=== PATIENT | female | born 1985 | race Caucasian/White ===

== ENCOUNTER 2016-11-23 11:07 | Emergency (ER) | payer MEDICAID ==
[~2016-11-23] VITALS: Wt 80.0 kg
[2016-11-23] MEDS ORDERED: ACETAMINOPHEN 325 MG TAB PO STA (12:09)
[2016-11-23 13:04] LABS: ADD SCAN DIFF NO
[2016-11-23 13:09] LABS: BASOPHILS % 0.2 % (0.0-2.0); EOSINOPHILS % 0.4 % (0.0-7.0); HEMATOCRIT 42.2 % (37.0-47.0); HEMOGLOBIN 14.1 g/dl (12.0-16.0); LYMPHOCYTES # 1.7 10^3/ul (0.8-2.9); LYMPHOCYTES % 17.5 % (15.0-51.0); MEAN CORPUSCULAR HGB CONC 33.4 g/dl (32.0-37.0); MEAN CORPUSCULAR VOLUME 89.8 fl (82.0-101.0); MEAN PLATELET VOLUME 10.2 fl (7.4-10.4); MONOCYTE # 0.5 10^3/ul (0.3-0.9); MONOCYTES % 4.7 % (0.0-11.0); NEUTROPHIL # 7.3 10^3/ul (1.6-7.5); PLATELET COUNT 272 10^3/UL (140-415); RED CELL DISTRIBUTION WIDTH 11.9 % (11.5-14.5); WHITE BLOOD COUNT 9.5 10^3/ul (4.8-10.8)
[2016-11-23 13:16] LABS: ADD UMIC YES; URINE BILIRUBIN (Dip) NEGATIVE (NEGATIVE); URINE BLOOD (Dip) 3+ (NEGATIVE); URINE GLUCOSE (Dip) NEGATIVE (NEGATIVE); URINE KETONES (Dip) NEGATIVE (NEGATIVE); URINE LEUKOCYTE ESTERASE (Dip) 1+ (NEGATIVE); URINE NITRITE (Dip) NEGATIVE (NEGATIVE); URINE TOTAL PROTEIN (Dip) NEGATIVE (NEGATIVE); URINE UROBILINOGEN (Dip) 1.0 E.U./dL (0.1-1.0)
[2016-11-23 14:05] LABS: URINE COLOR 9064 (YELLOW)
[2016-11-23 14:06] LABS: BACTERIA,URINE FEW; URINE RBCS >200 /HPF (0)
--- NOTE | 2016-11-23 14:08 | RADRPT ---
PROCEDURE: US Pelvis. CLINICAL INDICATION: Vaginal bleeding. . TECHNIQUE: Multiple sonographic images of the pelvis were obtained utilizing a transabdominal and endovaginal technique. The images were reviewed on a PACS workstation. COMPARISON: None available. FINDINGS: The uterus is retroflexed and measures 8.4 x 5.5 x 6.3 cm. The endometrial echo complex is prominent and measures 20.4 mm. The endometrial canal complex is somewhat heterogeneous. There is no definit e gestational sac identified. There is no evidence for free fluid. The right ovary has a normal ech otexture and measures 3.0 x 2.0 x 2.6 cm. The left ovary has a normal echotexture and measures 4.0 x 2.4 x 3.2 cm. No adnexal masses are noted. IMPRESSION: 1. Mildly prominent in nature canal complex of uncertain significance. There is no evidence of an i ntrauterine gestation. An early IUP, missed AB or ectopic could have this appearance. Correlation with serial quantitative beta HCGs and possible follow-up to [facility] is suggested. RPTAT: [facility] Physician Mitchel Date Time Electronically viewed and signed by Physician Mitchel on 11/23/2016 14:07 /
[2016-11-23] MEDS ORDERED: ACET500C5 PO (15:35)
--- NOTE | 2016-11-23 15:39 | ERD ---
ER Documentation Chief Complaint Date/Time DATE: 11/23/16 TIME: 15:36 Chief Complaint low abd cramping with vaginal bleeding since yesterday.sent by ob for eval HPI This with lower abdominal cramping suprapubic and slightly on the right for last 2 days. She had slight amount of bleeding with slight clots. She denies any tissue. She sent by OB Dr. Benson. she had an ultrasound yesterday which apparently showed a possible ectopic . ROS All systems reviewed and are negative except as per history of present illness. Medications Home Meds Active Scripts Acetaminophen* (Tylophen*) 500 Mg Capsule, 1 CAP PO Q6H Y for PAIN AND OR ELEVATED TEMP, #15 CAP Prov:AUSTIN CULLEN MD 11/23/16 Allergies Allergies: Coded Allergies: No Known Allergy (Unverified , 11/23/16) PMhx/Soc History of Surgery: Yes (r. shoulder) Anesthesia Reaction: No Hx Neurological Disorder: No Hx Respiratory Disorders: No Hx Cardiac Disorders: No Hx Psychiatric Problems: No Hx Miscellaneous Medical Probl: No Hx Alcohol Use: Yes (social) Hx Substance Use: No Hx Tobacco Use: No Smoking Status: Never smoker Physical Exam Vitals Vital Signs Date Time Temp Pulse Resp B/P Pulse Ox O2 Delivery O2 Flow Rate FiO2 11/23/16 11:10 98.6 96 20 111/66 98 Physical Exam Const: [] Head: Atraumatic Eyes: Normal Conjunctiva ENT: Normal External Ears, Nose and Mouth. Neck: Full range of motion..~ No meningismus. Resp: Clear to auscultation bilaterally Cardio: Regular rate and rhythm, no murmurs Abd: Soft, non tender, non distended. Normal bowel sounds Skin: No petechiae or rashes Back: No midline or flank tenderness Ext: No cyanosis, or edema Neur: Awake and alert Psych: Normal Mood and Affect Result Diagram: 11/23/16 1239 Results 24 hrs Laboratory Tests Test 11/23/16 12:00 11/23/16 12:39 Urine Bacteria FEW Urine Bilirubin NEGATIVE Urine Clarity SLIGHTLY CLOUDY Urine Color 9064 Urine Epithelial Cells FEW Urine Glucose NEGATIVE% Urine Hemoglobin 3+ Urine Ketones NEGATIVE Urine Leukocyte Esterase 1+ Urine Microscopic RBC >200/HPF Urine Microscopic WBC 5-10/HPF Urine Nitrite NEGATIVE Urine Specific Casanova 1.015 Urine Total Protein NEGATIVE Urine Urobilinogen 1.0 E.U./dL Urine pH 7.0 Basophils # 0.010^3/ul Basophils % 0.2% Beta HCG, Quantitative 6570.1mIU/ml Eosinophils # 0.010^3/ul Eosinophils % 0.4% Hematocrit 42.2% Hemoglobin 14.1g/dl Lymphocytes # 1.710^3/ul Lymphocytes % 17.5% Mean Corpuscular Hemoglobin 30.0pg Mean Corpuscular Hemoglobin Concent 33.4g/dl Mean Corpuscular Volume 89.8fl Mean Platelet Volume 10.2fl Monocytes # 0.510^3/ul Monocytes % 4.7% Neutrophils # 7.310^3/ul Neutrophils % 77.0% Nucleated Red Blood Cells # 0.010^3/ul Nucleated Red Blood Cells % 0.0/100WBC Platelet Count 62320^3/UL Red Blood Count 4.7010^6/ul Red Cell Distribution Width 11.9% White Blood Count 9.510^3/ul Current Medications Medications (Trade) Dose Ordered Sig/Cristian Route PRN Reason Start Time Stop Time Status Last Admin Dose Admin Acetaminophen (Tylenol Tab) 650 mg ONCE STAT PO 11/23/16 12:09 11/23/16 12:11 DC 11/23/16 12:43 Procedures/MDM Quantitative hCG is 6500. Patient is Rh+. Urine shows leukocytes with few bacteria. CBC is normal. Pelvic ultrasound shows no evidence of previous cystic structure seen on yesterday's ultrasound. There is nonspecific heterogeneous without visible gestational sac or intrauterine . There are no adnexal masses. There is no free fluid. A call was placed to Dr. Mark stearns and the case discussed. Patient had complete resolution of pain with Tylenol. Patient presents with vaginal bleeding and crampy lower pain with no visible intrauterine x-ray quantitative hCG of 6500. Patient will require close follow-up and a repeat hCG likely in 1-2 days. Patient was advised by Dr. Benson to see her in the morning. Return for worsening pain, fevers, new or worsening symptoms. Currently patient is symptom-free. Differential includes early , incomplete , ectopic . Signs or symptoms are not consistent with appendicitis currently, acute abdomen, initial cause of pain. She'll be treated with Keflex for her UTI as well. Departure Diagnosis: Primary Impression: Vaginal bleeding in patient at less than 20 weeks ges... Condition: Stable Patient Instructions: Bleeding During Early Additional Instructions: CHEQUE CON DR BRENNAN SMART. CHEQUE OTRO VEZ PARA MAS SIMPTOMAS. RECOMIENDO CHEZELALEM BARKER OTRO VEZ 2 VASQUEZ. AUSTIN CULLEN MD Nov 23, 2016 15:39
[2016-11-23] MEDS ORDERED: CEPH-443 PO (15:40)
[2016-11-23 15:49] VITALS: BP 103/61; PULSE 74; RESP 20; TEMP 98.3
== END 2016-11-23 15:51 | disposition home or self-care (01) ==
LOC: FTE 11:07
DX: O20.9 Hemorrhage in early pregnancy, unspecified (principal); R10.30 Lower abdominal pain, unspecified; R10.2 Pelvic and perineal pain; Z3A.00 Weeks of gestation of pregnancy not specified
CPT/HCPCS: 36415; 76801; 76817; 81001; 84702; 85025; 86900; 86901; Z7502; Z7610; 81003